=== PATIENT | female | born 1985 | race Two or more races ===

== ENCOUNTER 2025-02-25 20:42 | Emergency (ER) | payer SELFPAY ==
--- NOTE | ~2025-02-25 | CT_ITS ---
EXAMINATION: CT abdomen pelvis w con DATE: 02/25/2025 22:02 INDICATION: Abdomen pain. Right flank pain. TECHNIQUE: Computed tomography (CT) of the abdomen and pelvis was performed without intravenous contrast. The dose-length product was 1034.50 mGy-cm. Automated exposure control and iterative reconstruction technique were employed. COMPARISON: None. FINDINGS: Lung bases unremarkable. Heart size normal. Fatty infiltration of the liver. Contracted gallbladder. The spleen, pancreas, adrenal glands and kidneys are unremarkable. Nonobstructive bowel gas pattern. The appendix is not positively visualized. There is no pericecal inflammatory change to suggest appendicitis. There is a 2 cm left adnexal cyst, likely benign. No free air or free fluid. Nonobstructive bowel pattern. No lymphadenopathy. No significant vascular abnormality. No abnormal pelvic masses or fluid collections. No acute osseous abnormality. There is a sclerotic lesion in the right ilium, likely benign bone island. IMPRESSION: 1. No acute abdominal abnormality. Reviewed, dictated and finalized at location O.
[2025-02-25 20:49] VITALS: BP 144/80; PULSE 80; RESP 18; TEMP 36.6; O2SAT 99
[2025-02-25 21:12] VITALS: BP 156/97; PULSE 74; RESP 16; O2SAT 98
[2025-02-25 21:29] LABS: Hematocrit 36.7 % (37.0-47.0); Hemoglobin 11.8 g/dL (12.0-15.0); Immature Granulocyte Percent A 0.2 % (0-0.5); Lymphocytes Absolute Auto 3.84 K/mm3 (0.9-3.2); Mean Corpuscular HGB Conc 32.2 g/dl (32-36); Mean Corpuscular Hemoglobin 28.1 pg (26-34); Mean Corpuscular Volume 87.4 fl (80-100); Nucleated Red Blood Cells Absolute Auto 0.000 K/mm3 (0.0-0.012); Nucleated Red Blood Cells Perc 0.0 % (0.0-0.2); Platelet Count Result 283 k/mm3 (150-375); Red Blood Count 4.20 M/mm3 (4.2-5.4); White Blood Count 9.2 K/mm3 (4.5-10.0)
[2025-02-25 21:34] LABS: Alanine Aminotransferase 26 U/L (6-35); Albumin Level 4.0 g/dL (3.5-5.1); Alkaline Phosphatase 56 U/L (38-126); Anion Gap 7 mmol/L (4-12); Aspartate Amino Transferase 28 U/L (14-36); Bilirubin,Total 0.3 mg/dL (0.2-1.3); Blood Urea Nitrogen 10 mg/dL (7-17); Calcium 9.3 mg/dL (8.4-10.2); Carbon Dioxide 22 mmol/L (22-30); Chloride 108 mmol/L (98-107); Estimated CRCL calculation 135 ml/min; Estimated Glomerular Filt Rate > 60; Glucose 143 mg/dL (65-110); Lipase 54 U/L (23-300); Magnesium 1.9 mg/dL (1.6-2.3); Potassium 3.7 mmol/L (3.4-5.0); Sodium 137 mmol/L (137-145); Total Protein 7.6 g/dL (6.3-8.2)
[2025-02-25 21:41] LABS: INR 1.2; Prothrombin Time 14.8 Seconds (11.1-14.7)
[2025-02-25 21:42] LABS: Partial Thromboplastin Time 26.8 Seconds (22.3-36.8)
[2025-02-25 21:51] LABS: Beta HCG Quantitative < 2.39 mIU/ML
[2025-02-25 21:59] LABS: Add Urine Microscopic? YES
--- NOTE | 2025-02-25 21:59 | ED.FEMALEGU ---
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 States that her. Did come early this month and states that last month was also early pain admits that she does have a history of PCOS. Patient also states that during her last menstrual cycle she also was passing some blood clots but prior to that she was not passing clots with her menses. [place] and has not established care with an OBGYN. States that she is having some right flank pain radiating to her right groin. States that she has had her appendix taken out in the past. Denies any nausea or vomiting, any diarrhea, any recent illness, fevers or chills. No additional symptoms or concerns at this time. Denies any chance of . Related Data Allergies Allergy/AdvReac Type Severity Reaction Status Date / Time No Known Allergies Allergy Verified 02/25/25 20:56 Review of Systems Review of Systems: All systems are reviewed and are negative unless stated otherwise in the HPI. Exam Narrative: General: Alert, awake, afebrile, in no acute distress. HEENT: PERRL, no rhinorrhea, no post nasal drip, oropharynx clear. Neck: Trachea midline, no JVD, no lymphadenopathy. Cardiovascular: Regular rate and rhythm, no murmurs, rubs or gallops, no peripheral edema. Respiratory: Clear to auscultation bilaterally, no tachypnea, no wheezing, no rhonchi, no rubs, no respiratory distress. Abdomen: Soft, nontender, nondistended, no rebound, no guarding, no peritoneal signs. Musculoskeletal: No joint swelling or deformity, normal muscle tone. Skin: No rashes or petechia, no signs of infection. Psychiatric: Alert and oriented, normal behavior and judgment for situation. Neurological: Alert and oriented to person, place, and time. Follows all commands. No focal deficits, speech is clear and fluent. Course Vital Signs Vital signs: Vital Signs Temperature 97.8 F 02/25/25 20:49 Pulse Rate 80 02/25/25 20:49 Respiratory Rate 18 02/25/25 20:49 Blood Pressure 144/80 H 02/25/25 20:49 Pulse Oximetry 99 02/25/25 20:49 Oxygen Delivery Room Air 02/25/25 20:49 Temperature 97.8 F 02/25/25 20:49 Pulse Rate 74 02/25/25 21:12 Respiratory Rate 16 02/25/25 21:12 Blood Pressure 156/97 H 02/25/25 21:12 Pulse Oximetry 98 02/25/25 21:12 Oxygen Delivery Room Air 02/25/25 20:49 MDM - Female Genitourinary MDM Narrative Medical decision making narrative: The patient was evaluated by myself in the emergency department. History is obtained from patient who is an independent historian and physical exam was performed. External medical records were reviewed at this time. IV was established and pertinent tests were ordered. Laboratory results obtained revealing no acute process. Imaging studies obtained included CT abdomen pelvis with IV contrast which was independently interpreted by me revealing no acute process, which is pending final radiology interpretation. Differential diagnosis considerations include dysfunctional uterine bleeding, ovarian cysts, polycystic ovarian syndrome, threatened miscarriage. Comorbidities impacting this visit include history of PCOS. I have evaluated and discussed social determinants of health with the patient that could potentially impact subsequent diagnosis and treatment plans. On repeat assessment of the patient, reevaluation revealed that the patient is doing well and is in no acute distress. Patient symptoms have improved since she arrived to our emergency department. Patient was administered 15 mg of IV Toradol for her menstrual cramps. Repeat vital signs were all reviewed and noted to be stable. Differential diagnosis and treatment plan were discussed with the patient at bedside. Patient agrees with discussion and after shared medical decision making agrees with discharge. All questions were answered to the patient's satisfaction. Patient will follow up with OBGYN in 3-5 days. Patient was provided with strict return precautions and instructed to return to the emergency department if any new or worsening symptoms develop. The patient was discharged in stable condition. Lab Data 02/25/25 21:14 02/25/25 21:14 Labs: Lab Results 02/25/25 02/25/25 Range/Units 21:14 21:37 WBC 9.2 (4.5-10.0) K/mm3 RBC 4.20 (4.2-5.4) M/mm3 Hgb 11.8 L (12.0-15.0) g/dL Hct 36.7 L (37.0-47.0) % MCV 87.4 (80-100) fl MCH 28.1 (26-34) pg MCHC 32.2 (32-36) g/dl RDW 13.6 (11.5-14.5) % Plt Count 283 (150-375) k/mm3 MPV 10.3 (7.4-10.4) fl Immature Gran % (Auto) 0.2 (0-0.5) % Neut % (Auto) 52.2 (45.5-73.1) % Lymph % (Auto) 41.7 (18.3-44.2) % [place] % (Auto) 4.3 (2.6-8.5) % Eos % (Auto) 1.3 (0-4.4) % Baso % (Auto) 0.3 (0.2-1.2) % Lymph # (Auto) 3.84 H (0.9-3.2) K/mm3 [place] # (Auto) 0.4 (0.1-0.6) K/mm3 Eos # (Auto) 0.1 (0-0.3) K/mm3 Baso # (Auto) 0.0 (0.0-0.1) K/mm3 Abs Immat Gran (auto) 0.02 (0.00-0.031) K/mm3 Absolute Neuts (auto) 4.8 (1.3-6.7) K/mm3 Absolute Nucleated RBC 0.000 (0.0-0.012) K/mm3 Nucleated RBC % 0.0 (0.0-0.2) % PT 14.8 H (11.1-14.7) Seconds INR 1.2 APTT 26.8 (22.3-36.8) Seconds Sodium 137 (137-145) mmol/L Potassium 3.7 (3.4-5.0) mmol/L Chloride 108 H (98-107) mmol/L Carbon Dioxide 22 (22-30) mmol/L Anion Gap 7 (4-12) mmol/L BUN 10 (7-17) mg/dL Creatinine 0.57 L (0.7-1.0) mg/dL Estim Creat Clear Calc 135 ml/min Estimated GFR > 60 (59 - ) Glucose 143 H (65-110) mg/dL Calcium 9.3 (8.4-10.2) mg/dL Magnesium 1.9 (1.6-2.3) mg/dL Total Bilirubin 0.3 (0.2-1.3) mg/dL AST 28 (14-36) U/L ALT 26 (6-35) U/L Alkaline Phosphatase 56 (38-126) U/L Total Protein 7.6 (6.3-8.2) g/dL Albumin 4.0 (3.5-5.1) g/dL Lipase 54 (23-300) U/L Beta HCG, Quant < 2.39 mIU/ML Urine Color Red H (Yellow) Urine Appearance Clear (Clear) Urine pH 6.5 (5.0-9.0) Ur Specific [place] 1.025 (1.001-1.035) Urine Protein 2+ H (Negative) mg/dL Urine Glucose (UA) Negative (Negative) mg/dL Urine Ketones Negative (Negative) mg/dL Ur Blood (Man) 3+ H (Negative) Urine Nitrate Negative (Negative) Urine Bilirubin Negative (Negative) Urine Urobilinogen 0.2 (<2.0) mg/dL Leukocyte Esterase Rfl Negative (Negative) JOSELITO/UL Urine RBC >75 H (0-2) /hpf Urine WBC 4-6 H (0-3) /hpf Blood Type A Positive Antibody Screen Negative Screen Not Reportable Baby's Blood Type Not Reportable Baby's DORETHA Not Reportable Doses of RhIg Required 0 Discharge Plan Discharge Clinical Impression: Abnormal vaginal bleeding Patient Disposition: Home Condition: Improved Instructions: Antibiotic Form, Abnormal (Dysfunctional) Uterine Bleeding (ED) Additional Instructions: Please follow-up with the OBGYN you were provided with today within the next 3-5 days. Return to the ED if any new or worsening symptoms develop. Patient Language: Croatian Follow-up/Referrals: Millie Cerna MD [Physician, [employer]] - 3 Days UNKNOWN,DOCTOR [Primary Care Provider] Time of Disposition: 22:05
[2025-02-25 22:00] LABS: Appearance Urine Clear (Clear); Specific Grav Ur 1.025 (1.001-1.035)
[2025-02-25 22:01] LABS: Glucose Urine UA Negative (Negative); Leukocyte Esterase Ur Negative LEU/UL (Negative); Nitrate Urine Negative (Negative)
[2025-02-25] MEDS: KETOROLAC 15 MG/ML VIAL (*BKC) IV PUSH (22:19)
[2025-02-25 22:31] VITALS: BP 157/88; PULSE 67; RESP 16; O2SAT 100
== END 2025-02-25 22:25 | disposition home or self-care (01) ==
PROVIDERS: Emergency Provider Emergency Medicine
DX: N93.9 Abnormal uterine and vaginal bleeding, unspecified (principal); E28.2 Polycystic ovarian syndrome
CPT/HCPCS: 36415; 74177; 80053; 81001; 83690; 83735; 84702; 85025; 85461; 85610; 85730; 86850; 86900; 86901; 87086; 96374; 99284; J1885; Q9967